=== PATIENT | male | born 1945 | race Caucasian/White ===

== ENCOUNTER → 2019-03-02 | Outpatient (CLI) | payer MEDICARE ==
[~2019-03-02] MED LIST: CLN.1T PO; FELO2.5T3; LEVO500T2 PO; MTP25TSR
--- NOTE | 2019-03-02 12:05 | Diagnostic Imaging Report ---
INDICATION: History of pneumonia and difficulty breathing. TIME OF EXAM: 10:55 a.m. COMPARISON: Correlation is made with prior study from 04/03/2016. FINDINGS: Heart size is stable. Lungs are hyperinflated consistent with COPD. There are some chronic-appearing interstitial changes in the mid and lower lung trimble bilaterally. No parenchymal consolidation is seen. No effusion is identified. There is no pneumothorax. IMPRESSION: COPD and chronic interstitial changes. No acute abnormality is detected. Dictated by: Dictated on workstation # [id number]
== END ==
LOC: RAD 10:36
PROVIDERS: ATTEND Nurse Practitioner Family
DX: J44.9 Chronic obstructive pulmonary disease, unspecified (principal); J84.9 Interstitial pulmonary disease, unspecified; Z87.01 Personal history of pneumonia (recurrent)
CPT/HCPCS: 71046

== ENCOUNTER → 2019-08-12 | Outpatient (CLI) | payer MEDICARE ==
[2019-08-12 14:41] LABS: HEMOGLOBIN 14.1 G/DL (13.3-17.7); MEAN PLATELET VOLUME 11.4 FL (7.4-10.4); RED CELL DISTRIBUTION WIDTH 14.3 % (10.0-14.5)
[2019-08-12 14:44] LABS: BILIRUBIN,URINE NEGATIVE (NEGATIVE); CLARITY,URINE CLEAR; COLOR,URINE YELLOW; GLUCOSE, URINE (UA) NEGATIVE (NEGATIVE); KETONES,URINE NEGATIVE (NEGATIVE); LEUKOCYTE ESTERASE ,URINE NEGATIVE (NEGATIVE); NITRITE,URINE NEGATIVE (NEGATIVE); PH,URINE 5.5 (5-9); PROTEIN,URINE NEGATIVE (NEGATIVE)
[2019-08-12 14:57] LABS: BACTERIA,URINE TRACE /HPF; RBC,URINE 0-2 /HPF
[2019-08-12 14:57] LABS: ALANINE AMINOTRANSFERASE 12 U/L (0-55); ALBUMIN 4.5 GM/DL (3.2-4.5); ALKALINE PHOSPHATASE 73 U/L (40-136); BILIRUBIN,TOTAL 0.5 MG/DL (0.1-1.0); BUN/CREATININE RATIO 16; CALCIUM 9.8 MG/DL (8.5-10.1); CARBON DIOXIDE 27 MMOL/L (21-32); CHLORIDE 103 MMOL/L (98-107); CREATININE SERUM 1.05 MG/DL (0.60-1.30); GFR ESTIMATED > 60; GLUCOSE 100 MG/DL (70-105); POTASSIUM 4.6 MMOL/L (3.6-5.0); SODIUM 138 MMOL/L (135-145); TOTAL PROTEIN 8.1 GM/DL (6.4-8.2)
== END ==
LOC: LAB 14:27
PROVIDERS: ATTEND Internal Medicine
DX: N39.0 Urinary tract infection, site not specified (principal); N41.9 Inflammatory disease of prostate, unspecified; R50.9 Fever, unspecified
CPT/HCPCS: 36415; 80053; 81000; 83605; 85027; 85652

== ENCOUNTER 2022-12-03 06:35 | Outpatient (CLI) | payer MEDICARE, OTHER ==
[~2022-12-03] VITALS: Ht 165.1 cm; Wt 52.4 kg
[2022-12-03] MEDS ORDERED: AMLO2.5T4 PO (11:39)
[2022-12-03] MEDS ORDERED: TMSL.4C PO (11:39)
[2022-12-03] MEDS ORDERED: FINA5TAB6 PO (11:39)
== END 2022-12-03 13:56 | disposition home or self-care (01) ==
LOC: PREOP 06:35
PROVIDERS: ATTEND Surgery
DX: Z01.818 Encounter for other preprocedural examination (principal)

== ENCOUNTER 2022-12-22 06:44 | Day surgery (SDC) | payer MEDICARE, OTHER ==
[~2022-12-22] VITALS: Ht 165.1 cm; Wt 52.4 kg
[~2022-12-22 06:44] MED LIST changes: +AMLO2.5T4 PO; +FINA5TAB6 PO; +TMSL.4C PO
[2022-12-22] MEDS ORDERED: LACTATED RINGERS 1,000 ML IV STA (07:04)
[2022-12-22 07:12] VITALS: BP 196/113
[2022-12-22] MEDS ORDERED: PROPOFOL INJECTION 50 ML IV ONE (07:14)
[2022-12-22] MEDS ORDERED: HURRICAINE EXT TUBE (BENZOCAINE) XX PRN (07:15)
--- NOTE | 2022-12-22 07:39 | Progress Note-Pre Operative ---
Pre-Operative Progress Note Date H&P Reviewed: December 22, 2022 Time H&P Reviewed: 07:32 History & Physical: H&P Reviewed, Patient Examed, No changes noted Pre-Operative Diagnosis: screening colonoscopy, gerd BLOSSOM SALEEM DO December 22, 2022 07:38
[2022-12-22] MEDS ORDERED: PANT40TA2 PO (08:13)
--- NOTE | 2022-12-22 08:14 | Discharge Inst-Simple/Standard ---
Discharge Inst-Standard Discharge Medications New, Converted or Re-Newed RX: Transmitted to Pharmacy Patient Instructions/Follow Up Plan of Care/Instructions/FU: 2 weeks juju Activity as Tolerated: No Discharge Diet: Regular Diet BLOSSOM SALEEM DO December 22, 2022 08:14
[2022-12-22 08:15] VITALS: BP 106/64
--- NOTE | 2022-12-22 08:16 | Anesthesia-General Post-Op ---
MAC Patient Condition Mental Status/LOC: Same as Preop Cardiovascular: Satisfactory Nausea/Vomiting: Absent Respiratory: Satisfactory Pain: Controlled Complications: Absent Post Op Complications Complications None Follow Up Care/Instructions Patient Instructions None needed. Anesthesiology Discharge Order Discharge Order Patient is doing well, no complaints, stable vital signs, no apparent adverse anesthesia problems. No complications reported per nursing. AIME RODNEY CRNA December 22, 2022 08:16
--- NOTE | 2022-12-22 08:18 | Progress Note-Post Operative ---
Post-Operative Progess Note Surgeon (s)/Briquette Machine Operator (s) Surgeon BLOSSOM SALEEM DO Briquette Machine Operator: na Pre-Operative Diagnosis screening colonoscopy, gerd Post-Operative Diagnosis gastritis, colon polyp x 2 Procedure & Operative Findings Date of Procedure 12/22/22 Procedure Performed/Findings egd c biopsies, colonoscopy c cold biopsy polypectomy x 1 and hot bx polypectomy x 1 Anesthesia Type per telephone installer Estimated Blood Loss Estimated blood loss (mL): scant Specimens/Packing Specimens Removed antrum, ge, cecal polyp and transverse colon polyp BLOSSOM SALEEM DO December 22, 2022 08:18
[2022-12-22 08:20] VITALS: BP 93/56
[2022-12-22 08:45] VITALS: BP 106/59
--- NOTE | 2022-12-22 09:07 | OPERATIVE REPORT ---
DATE OF SERVICE: 12/22/2022 PREOPERATIVE DIAGNOSIS: Screening colonoscopy. POSTOPERATIVE DIAGNOSES: Gastritis, colon polyps x2. PROCEDURES: Esophagogastroduodenoscopy with biopsies; colonoscopy with cold biopsy; polypectomy x1 of the cecum and hot biopsy polypectomy x1, transverse colon polyp. SURGEON: Blossom Schuster DO ANESTHESIA: Per [employer] PLANT SUPERVISOR. ESTIMATED BLOOD LOSS: Scant. COMPLICATIONS: None. INDICATIONS: The patient is a 77-year-old male with needing colonoscopy and has reflux. He understands risks and benefits of procedure and wishes to proceed. Consent was signed in chart. DESCRIPTION OF PROCEDURE: The patient was taken to endoscopy suite, placed in left lateral recumbent position. Timeout was performed. Scope was inserted in the mouth, down the esophagus, stomach, into the duodenum without difficulty. No polyps, masses or ulcerations in the duodenum. Scope was slowly retracted back into the stomach, where it was further insufflated. Gastritis appearance of the antrum was obtained. Biopsy of the antrum was obtained. Scope was retroflexed, noting no other pathology. Scope was returned to its normal position, slowly withdrawn to distal esophagus. No polyps, masses or ulcerations. Biopsy of the GE junction was obtained. Scope was slowly retracted back until completely removed, noting no other pathology. Digital rectal exam was performed. No palpable polyps, masses or ulcerations. Prostate had slightly enlarged. Scope was inserted in the rectum, advanced all the way to the cecum with minimal difficulty. Prep was adequate with irrigation and suction. Cecum had a small polyp, which cold biopsy polypectomy was performed. Scope was then continuously slowly retracted back. No polyps, masses or ulcerations in the ascending colon. In the transverse colon, had a larger flat polyp, which hot biopsy polypectomy was performed and fulgurated. Scope was then continuously slowly retracted back. No polyps, masses or ulcerations in the remainder of the transverse, descending and sigmoid colon. Once in the rectum, scope was inserted and retracted multiple times, noting no other pathology. Scope was slowly retracted until completely removed. The patient tolerated the procedure well with no complications, taken to recovery room in stable condition. RECOMMENDATIONS: The patient will be started on Protonix 40 mg daily to see if this does improve his symptoms, await biopsy results. We will need repeat colonoscopy in 1-3 years depending on pathology. Any issues before that, be seen at that time. Job ID: [id number] DocumentID: [id number] Dictated Date: 12/22/2022 08:18:22 Agent Contract Clerk Date: 12/22/2022 09:05:00 Dictated By: BLOSSOM SCHUSTER DO
== END 2022-12-22 10:06 | disposition home or self-care (01) ==
LOC: ENDO 06:44
PROVIDERS: ATTEND Surgery
DX: Z12.11 Encounter for screening for malignant neoplasm of colon (principal); D12.0 Benign neoplasm of cecum; D12.3 Benign neoplasm of transverse colon; K21.00 Gastro-esophageal reflux disease with esophagitis, without bleeding; K29.70 Gastritis, unspecified, without bleeding; N40.0 Benign prostatic hyperplasia without lower urinary tract symptoms; K31.89 Other diseases of stomach and duodenum

== ENCOUNTER → 2023-02-05 | Outpatient (CLI) | payer MEDICARE, OTHER ==
[~2023-02-05] MED LIST changes: +PANT40TA2 PO
--- NOTE | 2023-02-05 11:35 | Diagnostic Imaging Report ---
PROCEDURE: US Scrotum. TECHNIQUE: Multiple real-time grayscale images were obtained over the scrotum in various projections bilaterally. INDICATION: Left-sided hydrocele and epididymal cyst. Right testicle measures 4.8 x 2.0 x 4.2 cm and left testicle measures 3.9 x 2.8 x 3.2 cm. Both testes show homogeneous echotexture. No discrete testicular mass is seen. There is blood flow to both testes. There are 2 small epididymal cysts on the left, largest approximately 7 mm in size. There is a large left hydrocele. No right-sided hydrocele is seen. No varicocele is detected. IMPRESSION: 1. No evidence of testicular mass or vascular compromise. 2. Small epididymal head cyst on the left. 3. Large left hydrocele. Dictated by: Dictated on workstation # [id number]
== END ==
LOC: RAD 10:33
PROVIDERS: ATTEND Urology
DX: N43.3 Hydrocele, unspecified (principal); N43.40 Spermatocele of epididymis, unspecified; N13.8 Other obstructive and reflux uropathy; N40.1 Benign prostatic hyperplasia with lower urinary tract symptoms; N50.3 Cyst of epididymis
CPT/HCPCS: 76870